=== PATIENT | female | born 1980 | race Caucasian/White ===

== ENCOUNTER 2025-08-22 14:40 | Emergency (ER) | payer MEDICAID, SELFPAY ==
[2025-08-22 14:42] VITALS: BP 127/82; PULSE 96; RESP 20; TEMP 37; O2SAT 94; BMI 20.1
[2025-08-22 14:47] VITALS: BP 127/82; PULSE 95; O2SAT 95
--- NOTE | 2025-08-22 14:59 | XR_ITS ---
PROCEDURE INFORMATION: Exam: XR Chest Exam date and time: 08/22/2025 2:56 PM Age: 44 years old Clinical indication: Cough and wheezing; Additional info: Cough/ wheezing TECHNIQUE: Imaging protocol: Radiologic exam of the chest. Views: 2 views. COMPARISON: No relevant prior studies available. FINDINGS: Lungs: Unremarkable. No consolidation. Pleural spaces: Unremarkable. No gross pleural effusion. No pneumothorax. Heart/Mediastinum: Unremarkable. No cardiomegaly. Bones/joints: Unremarkable. IMPRESSION: No acute findings.
[2025-08-22 15:03] VITALS: BP 127/81; PULSE 94; O2SAT 93
[2025-08-22 15:05] LABS: Coronavirus 19, PCR Not Detected (NotDetected); Influenza A, PCR Not Detected (NotDetected); Influenza B, PCR Not Detected (NotDetected)
[2025-08-22 15:09] VITALS: O2SAT 98
--- NOTE | 2025-08-22 15:09 | PC.NURSE ---
patient back from radiology at this time.
[2025-08-22] MEDS: IPRATROPIUM/ALBUTEROL 3 ML NEB IH (15:10)
[2025-08-22] MEDS: DEXAMETHASONE 1MG/1ML INTENSOL 10ML UDC (ER) 10 MG PO (15:10)
[2025-08-22] MEDS: DOXYCYCLINE HYCL 100 MG TABLET PO (15:18)
--- NOTE | 2025-08-22 15:18 | ED_ITS ---
Discharge Plan Disposition Patient Disposition: Home, Self-Care Prescriptions Prescriptions: New doxycycline hyclate 100 mg capsule 100 mg PO BID 7 Days Qty: 14 0RF albuterol sulfate 90 mcg/actuation HFA aerosol inhaler 4 inh inhalation Q4H PRN (Reason: shortness of breath or wheezing) Qty: 8.5 0RF Rx Instructions: 4 puffs every 4 hours for 48 hours then as needed for shortness of breath or wheezing following tphdymskukfroko-ibexpldhd-JD 2-30-10 mg/5 mL syrup 5 ml PO Q6H PRN (Reason: cold symptoms) 7 Days Qty: 118 0RF Referrals Follow up/Referrals: Roel Kirk DO [Staff Physician, Family Practice] - See instructions Provider,MD Sharad [Primary Care Provider, Medical] - See instructions Cory Adrian MD [Physician, Pulmonology] - See instructions Activity Restrictions/Add. Instructions Additional Instructions/Restrictions: At this time it was felt you are safe to be discharged home. If new or worsening symptoms please do not hesitate to return the emergency department. Please take your medications as prescribed and call and schedule an appointment with Dr. Kirk as soon as you are able. Clinical Impressions Clinical Impression: Acute exacerbation of chronic obstructive pulmonary disease, Encounter for smoking cessation counseling Print Language Print Language: Nicaraguan Discharge ED Provider: Da Pinto General Adult HPI <Da Pinto MD - Last Filed: 08/22/25 15:21> General Chief complaint: Upper Respiratory Infection Stated complaint: Coughing & Wheezing Time Seen by Provider: 08/22/25 14:53 Mode of Arrival: Ambulatory Source of Information: Patient Description of Symptoms (Recalled from ER Triage Doc. by RN): patient has recently moved here for [facility] and has been sick with uri/ viral s/s x3 days, pt has hx of copd and asthma History of Present Illness HPI narrative: Patient is a 44-year-old female chronic smoker history of COPD presents today with 3 days of cough wheezing shortness of breath. Has a nebulizer at home has had some improvement with that but still symptomatic. States she has been so sick she has been in bed the last few days but is having headache hoarse voice etc. She just moved here from [facility] and does not have a primary care doctor or a camera engineer and would like to establish care with them as well. Related Data Previous Rx's ?Medication ?Instructions ?Recorded albuterol sulfate 90 mcg/actuation 4 inh inhalation Q4 H PRN shortness 08/22/25 aerosol inhaler of breath or wheezing #8.5 g joan mhxbdcvsyirvnnh-qvocspdafeaiigb-JY 5 ml PO Q6H PRN col d symptoms 7 08/22/25 2 mg-30 mg-10 mg/5 mL oral syrup days #118 mL doxycycline hyclate 100 mg capsule 100 mg PO BID 7 day s #14 caps 08/22/25 Allergies Allergy/AdvReac Type Severity Reaction Status Date / Time Penicillins (PCN) Allergy Hives Verified 08/22/25 15:03 [facility] <Da Pinto MD - Last Filed: 08/22/25 15:21> [facility] Disclaimer: The information contained in this section may have been updated after the patient was seen, as this information can be updated by other users. Social History (Updated 08/22/25 @ 15:21 by Da Pinto MD) Smoking Status: Former smoker alcohol intake: never current occupational status: other Travel in the last 8 weeks?: None <Da Pinto MD - Last Filed: 08/22/25 15:21> ROS Obtained: Yes All systems reviewed & no additional complaints except as documented Physical Exam <Da Pinto MD - Last Filed: 08/22/25 15:21> General General appearance: alert Respiratory Respiratory exam: Present normal lung sounds bilaterally; Absent respiratory distress Cardiovascular Cardiovascular exam: Present regular rate and normal rhythm Neurological Exam Neurological exam: Present alert Medical Decision Making <Da Pinto MD - Last Filed: 08/22/25 15:21> Medical Records Screening: Per USPSTF and CDC recommendations, given the prevalence of disease in our region, it is our hospital?s policy to screen for HIV and viral Hepatitis for all patients aged 18 and over and those with ongoing risk factors. Darci Inquiry Pt receiving controlled substance: No Vital Signs: 08/22/25 14:42 08/22/25 14:47 08/22/25 15:03 Temperature 98.6 F Temperature Source Oral Pulse Rate 95 H 94 H Pulse Rate [Left Radial] 96 H Respiratory Rate 20 Blood Pressure 127/82 127/81 Blood Pressure [Right Arm] 127/82 Blood Pressure Mean [Right Arm] 97 02 Sat by Pulse Oximetry 94 L 95 93 L Oxygen Delivery Method Room Air T-Piece T-Piece Oxygen Flow Rate (LPM) 3 3 08/22/25 15:09 Temperature Temperature Source Pulse Rate Pulse Rate [Left Radial] Respiratory Rate Blood Pressure Blood Pressure [Right Arm] Blood Pressure Mean [Right Arm] 02 Sat by Pulse Oximetry 98 Oxygen Delivery Method Room Air Oxygen Flow Rate (LPM) Lab Data Lab Results 08/22/25 14:51: SARS-CoV-2 (PCR) Not detected, Influenza A Untype (PCR) Not detected, Influenza Type B (PCR) Not detected Orders (Tests/Meds): ED MEDICATIONS Discontinued Medications Generic Name Dose Route Start Last Admin Trade Name Freq PRN Reason Stop Dose Admin Albuterol/Ipratropium 3 ml 08/22/25 14:59 08/22/25 15:10 Ipratropium/Albuterol 3 Ml Neb IH 08/22/25 15:00 3 ml ONCE ONE Administration Dexamethasone 10 mg 08/22/25 14:59 08/22/25 15:10 Dexamethasone 1mg/1ml Intensol 10ml Udc (Er) PO 08/22/25 15:00 10 mg ONCE ONE Administration Doxycycline Hyclate 100 mg 08/22/25 15:15 08/22/25 15:18 Doxycycline Hycl 100 Mg Tablet PO 08/22/25 15:16 100 mg ONCE ONE Administration ORDERS Category Date Time Status Chest XR 2 view (NOT portable) [XR chest 2V] Stat Exams 08/22/25 14:59 Completed Rapid PCR Covid and Flu A/B Stat Lab 08/22/25 14:51 Completed Medical Decision Narrative: 44-year-old with above history and physical consistent with a COPD exacerbation chest x-ray was performed I personally interpreted which shows no focal consolidation however given her symptoms we will go ahead and treat her with nebs steroids and antibiotics doxycycline was given as she has a penicillin allergy. Will reassess after the therapeutic interventions have been given COVID and flu have been sent as well but she is 3 days out will not be a candidate for antiviral therapy. A referral has been made to Dr. Kirk as well as to our camera engineer. Care transitioned to Dr. Will Melton for final disposition and reassessment of the patient after her symptomatic medications. <Martin Melton MD - Last Filed: 08/22/25 15:36> Vital Signs: 08/22/25 14:42 08/22/25 14:47 08/22/25 15:03 Temperature 98.6 F Temperature Source Oral Pulse Rate 95 H 94 H Pulse Rate [Left Radial] 96 H Respiratory Rate 20 Blood Pressure 127/82 127/81 Blood Pressure [Right Arm] 127/82 Blood Pressure Mean [Right Arm] 97 02 Sat by Pulse Oximetry 94 L 95 93 L Oxygen Delivery Method Room Air T-Piece T-Piece Oxygen Flow Rate (LPM) 3 3 08/22/25 15:09 Temperature Temperature Source Pulse Rate Pulse Rate [Left Radial] Respiratory Rate Blood Pressure Blood Pressure [Right Arm] Blood Pressure Mean [Right Arm] 02 Sat by Pulse Oximetry 98 Oxygen Delivery Method Room Air Oxygen Flow Rate (LPM) Lab Data Lab Results 08/22/25 14:51: SARS-CoV-2 (PCR) Not detected, Influenza A Untype (PCR) Not detected, Influenza Type B (PCR) Not detected Orders (Tests/Meds): ED MEDICATIONS Discontinued Medications Generic Name Dose Route Start Last Admin Trade Name Freq PRN Reason Stop Dose Admin Albuterol/Ipratropium 3 ml 08/22/25 14:59 08/22/25 15:10 Ipratropium/Albuterol 3 Ml Neb IH 08/22/25 15:00 3 ml ONCE ONE Administration Dexamethasone 10 mg 08/22/25 14:59 08/22/25 15:10 Dexamethasone 1mg/1ml Intensol 10ml Udc (Er) PO 08/22/25 15:00 10 mg ONCE ONE Administration Doxycycline Hyclate 100 mg 08/22/25 15:15 08/22/25 15:18 Doxycycline Hycl 100 Mg Tablet PO 08/22/25 15:16 100 mg ONCE ONE Administration ORDERS Category Date Time Status Chest XR 2 view (NOT portable) [XR chest 2V] Stat Exams 08/22/25 14:59 Completed Rapid PCR Covid and Flu A/B Stat Lab 08/22/25 14:51 Completed Medical Decision Narrative: 44-year-old with above history and physical consistent with a COPD exacerbation chest x-ray was performed I personally interpreted which shows no focal consolidation however given her symptoms we will go ahead and treat her with nebs steroids and antibiotics doxycycline was given as she has a penicillin allergy. Will reassess after the therapeutic interventions have been given COVID and flu have been sent as well but she is 3 days out will not be a candidate for antiviral therapy. A referral has been made to Dr. Kirk as well as to our camera engineer. Care transitioned to Dr. Will Melton for final disposition and reassessment of the patient after her symptomatic medications. Martin Melton: Upon assumption care patient is hemodynamically stable. Patient is coughing but is clear to auscultation with no wheezing good air movement in all lung sims no significant tachypnea no significant tachycardia given this patient has mild COPD exacerbation and is appropriate for outpatient management at this time will be discharged with empiric atypical coverage with antibiotics and albuterol inhaler and will schedule follow-up with PCP and pulmonary. Critical Care <Da Pinto MD - Last Filed: 08/22/25 15:21> Critical Care Time Critical Care Time: No
--- OUTSIDE RECORDS SUMMARY | 2025-08-22 15:36 | XMS_ITS | Patient Health Record ---
Author Organization [facility] [place] Address [address] [place] [address] [place] [address] Support Name Relationship Address Phone RAMSES MOELLER Guarantor Unknown [phone] Allergies Allergen (clinical drug ingredient) Drug/Non Drug Allergy documented on EMR Reaction Allergy Type Onset Date Status Penicillin (uncoded) Unknown Allergy Active Reason For Referral No Information Medications Medication SIG (Take, Route, Frequency, Duration) Notes Start Date End Date Status Atenolol 50 MG 1 tablet Orally Once a day; Duration: 30 day(s) Active Ibuprofen 800 MG 1 tablet with food or milk as needed Orally Three times a day Active Chantix Starting Month [place] 0.5 MG X 11 & 1 MG X 42 Orally dispense one pack and use as directed Active Clindamycin HCl 300 MG 2 capsules Orally every 8 hrs; Duration: 10 day(s) Active Claritin otc Active Albuterol Active Social History Tobacco Use: Social History Observation Description Date Details (start date - stop date) Current Smoker NA - NA Tobacco Use/Smoking Question Answer Notes Are you a current every day smoker Additional Findings: Tobacco User Moderate cigar ette smoker (10-19 cigs/day) Alcohol Screen (Audit-C) Question Answer Notes Did you have a drink containing alcohol in the p ast year? No Points 0 Interpretation Negative Tobacco use other than smoking: Question Answer Notes Are you an other tobacco user? No Problems Problem Type SNOMED Code ICD Code Onset Dates Problem Status W/U Status Risk Notes Problem Chronic pain due to injury (109691245) Chronic pain due to trauma (G89.21) Active confirmed Problem Asthma (473498520) Asthma (J45.909) Active confirmed Problem Essential hypertension (35044827) Benign essential HTN (I10) Active confirmed Problem Seizure disorder (234721773) Seizure disorder (G40.909) Active confirmed Problem Chronic obstructive lung disease (38072882) COPD without exacerbation (J44.9) Active confirmed Plan Of Treatment Pending Test Test Name Order Date TSH 01/22/2019 CBC With Differential/Platelet 9 Lipid Panel With LDL/HDL Ratio 9 Comp. Metabolic Panel (14) 01/22/2019 Drug Screen 11 w/Conf, Serum 01/22/2019 Insurance Providers Payer Name Payer Address Payer Phone Subscriber Number Group Number Insured Name Patient Relationship to Insured Coverage Start Date Coverage End Date Medicare Part [place] [facility] [place] [address] [id number] RAMSES MOELLER Self - patient is the insured [employer] [facility] [address] [place] [address] [id number] RAMSES MOELLER Self - patient is the insured Medical (General) History Medical History History ICD Code back problems breathing problems ashthma COPD
[2025-08-22 15:37] VITALS: BP 113/72; PULSE 89; RESP 18; TEMP 37; O2SAT 95
== END 2025-08-22 15:39 | disposition home or self-care (01) ==
LOC: ER 15:35
PROVIDERS: Emergency Provider Student in an Organized Health Care Education/Training Program
DX: J44.1 Chronic obstructive pulmonary disease with (acute) exacerbation (principal); F17.210 Nicotine dependence, cigarettes, uncomplicated; Z71.6 Tobacco abuse counseling
CPT/HCPCS: 71046; 87636; 99283